=== PATIENT | male | born 1960 | race African-American/Black ===

== ENCOUNTER 2017-03-06 06:39 | Emergency (ER) | payer OTHER ==
[~2017-03-06] VITALS: Ht 170.2 cm; Wt 78.2 kg
[2017-03-06 06:41] VITALS: Ht 170.2 cm; Wt 78.2 kg
--- NOTE | 2017-03-06 07:47 | RADRPT ---
PROCEDURE: XR Chest. CLINICAL INDICATION: Shortness of breath TECHNIQUE: A single AP view of the chest was obtained. COMPARISON: None available FINDINGS: Lung volumes are low with compressive changes , bibasilar interstitial opacities and vascular crowdi ng. No pleural effusion or pneumothorax is seen. The cardiomediastinal silhouette is within normal limits for size. The osseous structures are unremarkable. IMPRESSION: 1. Low lung volumes with compressive changes. There are bibasilar interstitial opacities, at least partially related to atelectasis. 2. Otherwise, unremarkable chest x-ray. RPTAT: HH .Sol Wong MD, MD Date Time Electronically viewed and signed by .Sol Wong MD, on 03/06/2017 07:46 .G/
--- NOTE | 2017-03-06 07:56 | ERD ---
ER Documentation Chief Complaint Chief Complaint abdominal pain and cold symptoms x 1 week HPI This is a 56-year-old male who presents to the emergency room for evaluation of generalized weakness, and "I think I have pneumonia". The patient states that he was seen by another physician at an outside facility and was diagnosed with pneumonia however "they did not give me any medications". The patient states that he has not had a fever but states that he has had chills over the past month. He denies any current shortness of breath and came to the ER today for evaluation. The patient does state that he is a smoker and continues to smoke daily. He denies any aggravating or relieving factors for her symptoms ROS All systems reviewed and are negative except as per history of present illness. PMhx/Soc Medical and Surgical Hx: pt denies Medical Hx, pt denies Surgical Hx Hx Alcohol Use: No Hx Substance Use: No Hx Tobacco Use: Yes Smoking Status: Current every day smoker Physical Exam Vitals Vital Signs Date Time Temp Pulse Resp B/P Pulse Ox O2 Delivery O2 Flow Rate FiO2 03/06/17 06:41 97.4 72 18 144/100 98 Physical Exam INITIAL VITAL SIGNS: Reviewed by me GENERAL: The patient is well developed and appropriate for usual state of health in no apparent distress HEENT: Pupils equal, round, and reactive to light. EOMI. There is no scleral icterus. NECK: C-spine is soft and supple, there is no meningismus. There is no cervical lymphadenopathy. LUNGS: Clear to auscultation bilaterally. There are no rales, wheezes or rhonchi. HEART: Regular rate and rhythm, no murmurs, clicks, rubs or gallops. ABDOMEN: Soft, non-tender, non-distended. There are bowel sounds in all four quadrants. No rebound or guarding. EXTREMITIES: There is no peripheral cyanosis or edema. No focal swelling or erythema. NEUROLOGICAL: The patient moves all four extremities with 5/5 strength. Cranial nerves II - XII are intact. Normal gait. Alert and oriented SKIN: There is no apparent rash or petechiae. HEME/LYMPHATIC: There is no evidence of excessive bruising or lymphedema. PSYCHIATRIC: The patient does not appear anxious or depressed. Procedures/MDM Chest X-ray 1V Interpreted by me: Soft Tissue: No acute abnormalities Bones: No acute abnormalities Mediastinum/Cardiac Silhouette/Lungs: Low lung volumes with compressive changes. There are bibasilar interstitial opacities, at least partially related to atelectasis. This 56-year-old male presents to the ER for evaluation of chills, body aches and possible pneumonia. This patient was in the emergency room with his significant other for 5 hours while she was evaluated, when she was discharged this patient checked in and stated that he thinks he has pneumonia. I evaluated this patient he is afebrile, hemodynamically stable and not hypoxic. The patient was a very difficult historian and was not giving me any details on his previous diagnosis of pneumonia. Chest x-ray was obtained which does show bibasilar tissue opacities partially related to atelectasis. Given this patient 's symptoms of chills he was given Levaquin in the emergency room. He was complaining of pain was given 1 p.o. [facility]. The patient will be discharged home with a prescription for Levaquin, albuterol, and [facility] at this time. Smoking Cessation Therapy: Pt. was lectured for greater than 3 minutes on the health risks of continued smoking and the benefits of cessation. Departure Diagnosis: Primary Impression: Pneumonia Additional Impressions: Tobacco abuse Tobacco abuse counseling Condition: Stable JOHNSARITHA CASTELLANOS Mar 06, 2017 07:56
[2017-03-06] MEDS ORDERED: HYDR-906 PO (07:57)
[2017-03-06] MEDS ORDERED: ALBU8.5H3 INH (07:57)
[2017-03-06] MEDS ORDERED: LEVO750T25 PO (07:57)
[2017-03-06] MEDS ORDERED: HYDROCODONE/APAP (5/325) TAB PO ONE (08:00)
[2017-03-06] MEDS ORDERED: LEVOFLOXACIN 750 MG TABLET PO ONE (08:00)
== END 2017-03-06 08:45 | disposition home or self-care (01) ==
LOC: E/R 06:39
DX: J18.9 Pneumonia, unspecified organism (principal); R40.2252 Coma scale, best verbal response, oriented, at arrival to emergency department; F17.210 Nicotine dependence, cigarettes, uncomplicated; R40.2142 Coma scale, eyes open, spontaneous, at arrival to emergency department; R40.2362 Coma scale, best motor response, obeys commands, at arrival to emergency department; Z71.6 Tobacco abuse counseling
CPT/HCPCS: 71010; Z7502; Z7610

== ENCOUNTER 2017-03-08 05:18 | Emergency (ER) | payer OTHER ==
[~2017-03-08] VITALS: Ht 160 cm; Wt 73.8 kg
[~2017-03-08 05:18] MED LIST: ALBU8.5H3 INH; HYDR-906 PO; LEVO750T25 PO
[2017-03-08 05:28] VITALS: Ht 160 cm; Wt 73.8 kg
[2017-03-08] MEDS ORDERED: KETOROLAC 30 MG INJ IM STA (06:14)
[2017-03-08] MEDS ORDERED: HYDR-906 PO (06:27)
[2017-03-08] MEDS ORDERED: ALBU8.5H3 INH (06:27)
[2017-03-08] MEDS ORDERED: LEVO750T25 PO (06:27)
--- NOTE | 2017-03-08 06:31 | ERD ---
ER Documentation Chief Complaint Chief Complaint needs prescription for pain - had prescription but w/ wrong name HPI 56-year-old male presents to the emergency department with his prescriptions were written yesterday stating that they refer the wrong name. He comes in with his original prescriptions showing that the name was Sancho Amezquita and his name is Sancho Ellsworth. He was prescribed Readlyn, albuterol as well as Levaquin for the diagnosis of pneumonia. He has had a cough, but no fevers or chills, no hemoptysis. ROS All systems reviewed and are negative except as per history of present illness. Medications Home Meds Active Scripts Albuterol Sulfate* (Proair HFA*) 8.5 Gm Hfa.aer.ad, 2 PUFF INH Q4, #1 INHALER Prov:PAWAN HORVATH PA-C 03/08/17 Hydrocodone/Acetaminophen (Readlyn 5-325 Tablet) 1 Each Tablet, 1 TAB PO Q6H Y for PAIN, #7 TAB Prov:PAWAN HORVATH PA-C 03/08/17 Levofloxacin* (Levaquin*) 750 Mg Tablet, 750 MG PO DAILY for 5 Days, TAB Prov:PAWAN HORVATH PA-C 03/08/17 Albuterol Sulfate* (Proair HFA*) 8.5 Gm Hfa.aer.ad, 2 PUFF INH Q4, #1 INHALER Prov:SARITHA LOPEZ DO 03/06/17 Hydrocodone/Acetaminophen (Readlyn 5-325 Tablet) 1 Each Tablet, 1 TAB PO Q6H Y for PAIN, #7 TAB Prov:SARITHA LOPEZ DO 03/06/17 Levofloxacin* (Levaquin*) 750 Mg Tablet, 750 MG PO DAILY for 5 Days, TAB Prov:SARITHA LOPEZ DO 03/06/17 Allergies Allergies: Coded Allergies: No Known Allergy (Unverified , 03/08/17) PMhx/Soc Hx Alcohol Use: No Hx Substance Use: No Hx Tobacco Use: Yes Smoking Status: Current every day smoker Physical Exam Vitals Vital Signs Date Time Temp Pulse Resp B/P Pulse Ox O2 Delivery O2 Flow Rate FiO2 03/08/17 05:28 97.6 73 20 150/104 98 Physical Exam General: Well-developed, well-nourished. The patient appears in no acute distress. HEENT: Head is normocephalic, atraumatic. No scleral icterus. Pupils are equal , round, and reactive. Oral mucous membranes are moist. No pharyngeal erythema. Neck: Supple. Nontender. Lungs: Clear to auscultation. Normal air movement. Heart: Regular rate and rhythm. S1 and S2 are normal. No murmurs, gallops, or rubs. Abdomen: Soft, nontender, nondistended. Bowel sounds are normoactive. Extremities: No clubbing or cyanosis. Normal pulses. Moving extremities x 4. No weakness. Neurologic: Alert and oriented 3. No focal deficits. Skin: Normal turgor. No rash or lesions. Results 24 hrs Current Medications Medications (Trade) Dose Ordered Sig/Bill Route PRN Reason Start Time Stop Time Status Last Admin Dose Admin Ketorolac Tromethamine (Toradol) 30 mg ONCE STAT IM 03/08/17 06:14 03/08/17 06:16 DC Procedures/MDM 56-year-old male will be given prescriptions for the Readlyn, Levaquin and albuterol, the original prescription for Sancho Amezquita was returned to [facility], and was discarded properly. The patient was advised to start antibiotics today, return for any worsening symptoms. Departure Diagnosis: Primary Impression: Prescription requested Additional Impression: Pneumonia Condition: Good Patient Instructions: Pneumonia (Adult) PAWAN HORVATH PA-C Mar 08, 2017 06:31
== END 2017-03-08 06:39 | disposition home or self-care (01) ==
LOC: FTE 05:18 → E/R 06:39
DX: J18.9 Pneumonia, unspecified organism (principal); F17.210 Nicotine dependence, cigarettes, uncomplicated
CPT/HCPCS: 96372; J1885; Z7502

== ENCOUNTER 2018-01-30 16:20 | Emergency (ER) | END 2018-01-30 19:45 | disposition home or self-care (01) ==

== ENCOUNTER 2018-03-25 11:41 | Emergency (ER) | END 2018-03-25 18:02 | disposition home or self-care (01) ==

== ENCOUNTER 2018-03-27 10:30 | Emergency (ER) | END 2018-03-27 12:01 | disposition home or self-care (01) ==